=== PATIENT | female | born 1995 ===

== ENCOUNTER 2016-02-23 15:18 | Inpatient (IN) | payer BC ==
[~2016-02-23] VITALS: Ht 172.7 cm; Wt 122.7 kg
[2016-03-23 19:30] VITALS: BP 142/90; PULSE 90; TEMP 98.3
[2016-03-23] MEDS ORDERED: PRENATAL1 TA7 (19:30)
[2016-03-23 20:30] VITALS: BP 128/85; PULSE 67
[2016-03-23 20:55] LABS: BASO % 0.4 % (0.0-2.0); EOS % 0.4 % (0-4.0); GRAN # 6.3 (1.4-6.5); GRAN % 74.2 % (42.2-75.2); HEMOGLOBIN 12.6 g/dl (12.0-15.0); LYMPH # 1.3 (1.2-3.4); LYMPH % 15.6 % (20.0-51.0); MEAN CELL VOLUME 89 fl (80.0-95.0); MEAN CORPUSCULAR HEMOGLOBIN 32 pg (26.0-32.0); MEAN CORPUSCULAR HGB CONC 36 g/dl (33.0-37.0); MEAN PLATELET VOLUME 11.5 fl (7.4-10.4); MONO # 0.8 (0.1-0.6); MONO % 8.8 % (1.7-9.3); PLATELET COUNT 167 K/mm3 (130-400); RED BLOOD COUNT 3.96 M/mm3 (4.10-5.30); REDCELL DISTRIBUTION WIDTH-CV 13.2 % (11.5-14.5); WHITE BLOOD COUNT 8.5 K/mm3 (4.8-10.8)
[2016-03-23 21:00] VITALS: BP 127/66; PULSE 75
[2016-03-23 21:05] LABS: HEMATOCRIT 35.4 % (35.0-45.0)
[2016-03-23 21:58] VITALS: BP 122/67; PULSE 66; TEMP 98.2
[2016-03-23 22:25] VITALS: BP 120/64; PULSE 71; TEMP 98.2
[2016-03-24] VITALS (57 sets, daily range): BP systolic 86–138; BP diastolic 47–95; PULSE 55–145; TEMP 97.6–99
[2016-03-24] MEDS ORDERED: PERCOCET 325 MG1 TA2 PO (07:19)
[2016-03-24] MEDS ORDERED: MOTRIN 800800 MG/TAB PO (07:19)
[2016-03-24 14:42] LABS: BASO % 0.3 % (0.0-2.0); EOS % 0.2 % (0-4.0); GRAN # 8.4 (1.4-6.5); GRAN % 80.7 % (42.2-75.2); LYMPH # 1.2 (1.2-3.4); LYMPH % 11.6 % (20.0-51.0); MEAN CELL VOLUME 93 fl (80.0-95.0); MEAN CORPUSCULAR HGB CONC 34 g/dl (33.0-37.0); MEAN PLATELET VOLUME 11.3 fl (7.4-10.4); MONO # 0.7 (0.1-0.6); MONO % 6.8 % (1.7-9.3); PLATELET COUNT 171 K/mm3 (130-400); RED BLOOD COUNT 3.57 M/mm3 (4.10-5.30); REDCELL DISTRIBUTION WIDTH-CV 13.3 % (11.5-14.5); WHITE BLOOD COUNT 10.4 K/mm3 (4.8-10.8)
[2016-03-24 14:51] LABS: HEMATOCRIT 33.2 % (35.0-45.0); HEMOGLOBIN 11.3 g/dl (12.0-15.0); MEAN CORPUSCULAR HEMOGLOBIN 32 pg (26.0-32.0)
[2016-03-24 18:20] LABS: HEMATOCRIT 29.2 % (35.0-45.0); HEMOGLOBIN 9.8 g/dl (12.0-15.0)
[2016-03-25] VITALS (31 sets, daily range): BP systolic 94–143; BP diastolic 50–83; PULSE 68–99; TEMP 97.8–98.9
[2016-03-25 08:36] LABS: HEMOGLOBIN 7.6 g/dl (12.0-15.0)
[2016-03-25 08:41] LABS: HEMATOCRIT 22.4 % (35.0-45.0)
[2016-03-26 02:30] VITALS: BP 112/73; PULSE 112; TEMP 98.5
[2016-03-26 06:30] VITALS: BP 136/68; PULSE 94; TEMP 98.3
[2016-03-26 10:11] LABS: HEMATOCRIT 25.2 % (35.0-45.0); HEMOGLOBIN 8.6 g/dl (12.0-15.0)
== END 2016-03-26 13:00 | disposition home or self-care (01) | DRG 774 ==
LOC: LDR 03-23 06:49 → OB 03-25 13:29 → EDSTATUS 03-29 06:48 → LDRO 03-29 15:17
PROVIDERS: Obstetrics & Gynecology
PROC: 10E0XZZ Delivery of Products of Conception, External Approach (ICD-10-PCS; principal; 2016-03-24)
PROC: 0HQ9XZZ Repair Perineum Skin, External Approach (ICD-10-PCS; 2016-03-24)
DX: O99.824 Streptococcus B carrier state complicating childbirth (principal); O72.1 Other immediate postpartum hemorrhage; O70.0 First degree perineal laceration during delivery; O99.344 Other mental disorders complicating childbirth; F32.9 Major depressive disorder, single episode, unspecified; Z3A.39 39 weeks gestation of pregnancy; Z37.0 Single live birth
CPT/HCPCS: J0595; J0690; J2210; J2540; J2590; J2795; J7040; J7050; J7120; P9016